=== PATIENT | female | born 1945 | race Hispanic/Latino ===

== ENCOUNTER 2018-05-22 12:11 | Emergency (ER) | payer OTHER ==
[2018-05-22 13:27] LABS: BILIRUBIN,URINE SMALL (NEGATIVE); COLOR,URINE BROWN (YELLOW); GLUCOSE, URINE (UA) NEGATIVE (NEGATIVE); KETONES,URINE 5 mg/dL (NEGATIVE); LEUKOCYTE ESTERASE ,URINE LARGE (NEGATIVE); NITRATE,URINE POSITIVE (NEGATIVE); OCCULT BLOOD,URINE LARGE (NEGATIVE); PH,URINE >=9.0 (5.0-8.0); PROTEIN,URINE 100 (NEGATIVE)
[2018-05-22 13:44] LABS: APPEARANCE,URINE CLOUDY (CLEAR)
[2018-05-22 13:45] LABS: AMORPHOUS SEDIMENT,UR Moderate /LPF (None Seen); BACTERIA,URINE Many /HPF (None Seen); SQUAMOUS EPITHELIAL CELL,UR 0-2 /HPF (0-2)
[2018-05-22] MEDS ORDERED: SODIUM CHLORIDE 0.9% 1000ML 1,000 ML IV ONE (14:51)
[2018-05-22] MEDS ORDERED: ONDANSETRON HCL 4 MG/2 ML VIAL ONE (14:51)
[2018-05-22 14:57] LABS: BASOPHILS % (AUTO) 0.8 % (0.0-5.0); EOSINOPHILS % (AUTO) 1.2 % (0.0-8.0); HEMATOCRIT 44.4 % (36-48); LYMPHOCYTES % (AUTO) 18.8 % (21.0-51.0); MEAN CORPUSCULAR HEMOGLOBIN 28.5 pg (27.0-33.0); MEAN CORPUSCULAR HGB CONC 32.8 g/dL (32.0-36.0); MEAN CORPUSCULAR VOLUME 86.9 fL (79-99); MONOCYTES % (AUTO) 5.1 % (3.0-13.0); NEUTROPHILS % (AUTO) 74.1 % (40.0-77.0); PLATELET COUNT (AUTO) 315 K/uL (130-400); RED BLOOD CELL COUNT(AUTO) 5.11 MIL/uL (4.00-5.50); RED CELL DISTRIBUTION WIDTH 14.1 % (11.0-15.5); WHITE BLOOD COUNT (AUTO) 10.2 K/uL (4.8-10.8)
[2018-05-22 15:08] LABS: CREATININE 0.8 mg/dL (0.5-1.5); POTASSIUM 4.2 mmol/L (3.5-5.1)
[2018-05-22 15:12] LABS: ALBUMIN 3.4 g/dL (3.5-5.0); BILIRUBIN,TOTAL 0.5 mg/dL (0.2-1.0); TOTAL PROTEIN, SERUM 7.3 g/dL (6.0-8.3)
[2018-05-22] MEDS ORDERED: MORPHINE SULFATE 2 MG/ML 1ML SYG ONE (15:39)
[2018-05-22] MEDS ORDERED: DiphenhydrAMINE HCL 50 MG/ML VIAL ONE (15:46)
[2018-05-22] MEDS ORDERED: CEFTRIAXONE SODIUM 1 GM ONE (16:43)
[2018-05-22] MEDS ORDERED: SODIUM CHLORIDE 0.9% 50 ML IV ONE (16:43)
== END 2018-05-22 17:03 | disposition home or self-care (01) ==
LOC: EDH 12:11 → EDBD 12:11 → EDH 17:03
DX: K52.9 Noninfective gastroenteritis and colitis, unspecified (principal); N39.0 Urinary tract infection, site not specified; E07.9 Disorder of thyroid, unspecified; Z88.8 Allergy status to other drugs, medicaments and biological substances
CPT/HCPCS: 36415; 74176; 80053; 81001; 83690; 84484; 85025; 93005; 96361; 96374; 96375; 99284; J0696; J1200; J2405; J7030